=== PATIENT | female | born 1970 | race Caucasian/White ===

== ENCOUNTER → 2020-10-07 | Outpatient (CLI) | payer OTHER ==
[~2020-10-07] MED LIST: NOHOMEMEDICATIONS
== END ==
LOC: M.LAB 09:00
PROVIDERS: ATTEND Surgery
DX: Z01.812 Encounter for preprocedural laboratory examination (principal); Z20.828 Contact with and (suspected) exposure to other viral communicable diseases

== ENCOUNTER → 2020-10-13 | Day surgery (SDC) | payer OTHER ==
[~2020-10-13] MED LIST changes: +OXYCODONE HCL 55 MG PO
[2020-10-13 08:27] LABS: HEMATOCRIT 41.6 % (37.0-47.0); HEMOGLOBIN 14.1 gm/dL (12.0-15.0)
--- NOTE | 2020-10-14 17:32 | OP ---
[address] [address] OPERATIVE REPORT Name: TIFF AYALA Room: [facility]..#: [id number] Admission: 10/13/20 Attend Phys: Miranda Ramos Discharge: Date of : 72 Report #: [id number] THIS REPORT FOR: cc: Marielos Camacho Kathleen M. DO ~ Jose Obregon DO DATE OF SERVICE: 10/13/2020 SURGEON: Jose Obregon DO YARDAGE CALLER: Dr. Steve Grossman DO. PREOPERATIVE DIAGNOSIS: Biliary colic. POSTOPERATIVE DIAGNOSIS: Biliary colic. PROCEDURE PERFORMED: Laparoscopic cholecystectomy. INDICATIONS: The patient is a 50-year-old female who presented as an outpatient with complaints of postprandial right upper quadrant pain. History of present illness, physical exam, and imaging were consistent with biliary colic. Risks, benefits, and alternatives to surgery were discussed in detail. Risks of bleeding, infection, damage to the nearby structures including bowel and biliary tree were discussed. The patient voiced complete understanding and elected to proceed with surgery. DESCRIPTION OF PROCEDURE: The patient was taken to the operating theater and placed in the supine position. Bilateral SCDs were placed and preoperative antibiotics were given. General anesthesia was induced without complication. The patient's abdomen was prepped and draped in the standard sterile fashion. Timeout was performed and all were in agreement. An infraumbilical incision was then made using an 11 blade scalpel. Dissection was carried down to the midline using electrocautery and S retractors. Once the midline fascia was appreciated, it was scored with electrocautery and elevated into the surgical field using Marybel clamps. The abdomen was entered using a hemostat. Two 0 Vicryl stay sutures were placed on either edge of the fascia and a Chester trocar was placed into the abdomen. The abdomen was then insufflated to 15 mmHg. Camera was introduced. No injury to intra-abdominal contents was appreciated. The patient was placed in the head up, left side down position. A subxiphoid 5 mm port was placed under direct visualization. Next two 5 mm right subcostal ports were placed under direct visualization. Using the senior office assistant port, the gallbladder fundus was grasped and elevated towards the anterior abdominal wall. There were some omental adhesions to [place] [address] OPERATIVE REPORT Name: TIFF AYALA [facility] [id number] Admission: 10/13/20 Attend Phys: Miranda Ramos Discharge: Date of : 72 Report #: [id number] taken down using blunt and electrocautery dissection. Smiley's pouch was then taken medially and cephalad and the lateral peritoneum of the gallbladder was scored using electrocautery. The peritoneum was then incised laterally toward the liver and then carried over Smiley's pouch medially. Smiley's pouch was then taken inferolaterally was carried over the medial aspect of the gallbladder. Blunt dissection was then used to sweep the peritoneum down exposing the hepatocystic triangle and two structures entering the gallbladder. The cystic duct and artery were then skeletonized using blunt dissection clearing the hepatocystic triangle and fibrofatty tissue. A small rent in the gallbladder did occur during this process and the spilled bile was suctioned out using a suction business education instructor device. Once a critical view of safety was obtained, there were only two structures entering the gallbladder. The hepatic plate could be seen within the hepatocystic triangle. The cystic artery was then clipped twice proximally and once distally. The cystic duct was too large for the 5 mm clip training development director, so a 10 mm clip training development director was introduced into the abdomen through the subxiphoid port, which was upsized from a 5 mm to 12 mm port. Three clips were placed on the proximal cystic duct and one clip on the distal cystic duct. The EndoShears were then used to transect the cystic artery and cystic duct between the proximal and distal clips. The gallbladder Smiley's pouch was then raised anteriorly and the gallbladder was removed from the gallbladder fossa using electrocautery. It was then placed in to an EndoCatch bag and placed aside. The gallbladder fossa was visualized and was hemostatic. The clips were visualized and there was no bile or blood leakage. Next, the patient was placed in the neutral position. The right upper quadrant was thoroughly irrigated until the effluent ran clear and suctioned dry. The 5 mm ports were then removed and the Chester trocar and the midline was then removed under direct visualization and the abdomen was completely desufflated. The gallbladder and EndoCatch bag were removed through the midline incision. The midline fascia was closed using an 0 Vicryl in a [id number] fashion. Prior to the removal of the 5 mm ports, the 12 mm subxiphoid port was removed and a PMI closure device was used to close the fascia using 0 Vicryl. The subcutaneous tissue was closed using a 3-0 Vicryl. All skin incisions were closed using a 4-0 Monocryl in an interrupted inverted fashion. All skin wounds were dressed with Dermabond. This concluded the procedure. All sponge, needle and instrument counts were correct x 2. COMPLICATIONS: None. FINDINGS: Omental adhesions. SPECIMENS: [place] [address] OPERATIVE REPORT Name: TIFF AYALA Room: [facility].#: [id number] Admission: 10/13/20 Attend Phys: Miranda Ramos Discharge: Date of : 72 Report #: [id number] ESTIMATED BLOOD LOSS: 20 mL. ANESTHESIA: General endotracheal anesthesia. DRAINS: None. DISPOSITION: The patient was extubated successfully in the operating theater and taken to the PACU in stable condition. <ELECTRONICALLY SIGNED> By: Jose Obregon DO 10/14/20 1732 [id number] 195Jose Obregon DO /nt
--- NOTE | 2020-10-19 11:03 | PATH ---
[address] [address] PATHOLOGY RPT PROCEDURE Name: TIFF THOMAS Room: [facility].#: [id number] Admission: 10/13/20 Date of : 72 Discharge: Report #: [id number] Path Case #: [id number] [facility] Accession Number: [id number] . 01 Material submitted: . gallbladder - GALLBALDDER AND CONTENTS . 02 Diagnosis: Gallbladder: - Chronic cholecystitis, cholesterolosis and cholelithiasis. (TAMMY:elizabeth; 10/18/2020) [facility] 10/18/2020 [facility] Local . 02 Electronically signed: . Matt Fleming MD, Pathologist NPI- [id number] . 01 Gross description: . Received in formalin labeled "Tiff Thomas, gallbladder" is an intact cholecystectomy specimen measuring 7.9 x 1.9 x 1.2 cm. The serosa is smooth, jansen-pink and glistening with a roughened hepatic bed and multiple full-thickness defects located at the fundus and the hepatic bed ranging from 0.2-1.6 cm in greatest dimension with the closest defect measuring 3.9 cm from the cystic duct margin. The specimen is opened to reveal green-brown with yellow stippling mucosa and without polyps or masses. The average wall thickness is 0.2 cm. There is a green-black calculus measuring 1.1 x 0.7 x 0.7 cm obstructing the cystic duct. There is no lymph node grossly identified. Grain Grader sections of the fundus and body and the cystic duct margin are submitted in A1. ([facility]; 10/15/2020) GZA/GZA 10/18/2020 [facility] Local . 02 Pathologist provided ICD-10: K80.10, K82.4 . 02 CPT . 955221 Specimen Comment: A duplicate report has been generated due to demographic updates. Performed at: 01 [facility] [address], [place] [id number] MD Jaden Kern MD Phone: [phone] Performed at: 02 [facility] [address], [place], [place] [id number] MD Matt Fleming MD Phone: [phone]
== END | disposition home or self-care (01) ==
LOC: M.SUR
PROVIDERS: ATTEND Surgery
DX: K80.10 Calculus of gallbladder with chronic cholecystitis without obstruction (principal); R10.11 Right upper quadrant pain; Z98.890 Other specified postprocedural states; Z79.899 Other long term (current) drug therapy